=== PATIENT | female | born 1940 | race Caucasian/White ===

== ENCOUNTER 2021-11-20 20:45 | Emergency (ER) | payer OTHER ==
[~2021-11-20] VITALS: Ht 162.6 cm; Wt 73.0 kg
[2021-11-20 20:50] VITALS: BP 134/62
--- NOTE | 2021-11-20 20:50 | NUR ---
[facility] TO BED #9
--- NOTE | 2021-11-20 21:00 | NUR ---
ASSUME CARE OF PT BY JOELLEN RN, PT BIBA FOR WITNESSED SYNCOPAL EPISODE, PT C/O DIARRHEA X 1 MONTH, HAD A COLONOSCOPY AND DX WITH COLON CANCER. PT C/O RECTAL PAIN, EMS STATES DX ORTHOSTATIC HYPOTENSION YESTERDAY. PT PLACED ON CLOTH TESTER QUALITY, EKG COMPLETE AND GIVEN TO DR MENDOZA.
[2021-11-20] MEDS ORDERED: NACL 0.9% 500 ML IV ONE (21:05)
[2021-11-20 21:07] LABS: BASOPHILS # (AUTO) 0.1 K/uL (0.00-0.22); BASOPHILS % (AUTO) 0.5 % (0.0-2.0); EOSINOPHILS # (AUTO) 0.2 K/uL (0-0.4); EOSINOPHILS % (AUTO) 1.7 % (0.0-4.0); HEMATOCRIT 33.1 % (36-48); HEMOGLOBIN 10.8 g/dL (12.0-16.0); LYMPHOCYTES # (AUTO) 1.4 K/uL (2.5-16.5); LYMPHOCYTES % (AUTO) 9.6 % (20.5-51.1); MEAN CORPUSCULAR HEMOGLOBIN 27 pg (27-31); MEAN CORPUSCULAR HGB CONC 33 g/dL (33-37); MEAN CORPUSCULAR VOLUME 83.5 fL (80-94); MONOCYTES # (AUTO) 0.9 K/uL (0.8-1.0); NEUTROPHILS # (AUTO) 11.7 K/uL (1.8-7.7); NEUTROPHILS % (AUTO) 82.2 % (42.2-75.2); PLATELET COUNT (AUTO) 352 K/uL (140-450); RED BLOOD CELL COUNT(AUTO) 3.96 MIL/uL (4.20-5.40); RED CELL DISTRIBUTION WIDTH 15.6 % (11.6-13.7); WHITE BLOOD COUNT (AUTO) 14.2 K/uL (4.8-10.8)
--- NOTE | 2021-11-20 21:22 | NUR ---
PT RETURN FROM RADIOLOGY
[2021-11-20 21:29] LABS: ANION GAP 16.5 (8-16); ASPARTATE AMINOTRANSFERASE 17 U/L (15-37); CARBON DIOXIDE 22.9 mmol/L (21-32); CHLORIDE 101 mmol/L (98-107); CREATININE 1.7 mg/dL (0.6-1.3); GLUCOSE 189 mg/dL (74-106); POTASSIUM 3.4 mmol/L (3.5-5.1); SODIUM SERUM 137 mmol/L (136-145); TOTAL BILIRUBIN 0.6 mg/dL (0.0-1.0); UREA NITROGEN, BLOOD 22 mg/dL (7-18)
--- NOTE | 2021-11-20 22:30 | NUR ---
JAMIRIGHT COMPLETE URINE SENT TO LAB
[2021-11-20 22:41] LABS: APPEARANCE,URINE CLOUDY (CLEAR); BILIRUBIN,URINE NEGATIVE (NEGATIVE); BLOOD, URINE NEGATIVE (NEGATIVE); COLOR,URINE YELLOW (YELLOW); LEUKOCYTE ESTERASE ,URINE 1+ (NEGATIVE); NITRITE, URINE POSITIVE (NEGATIVE); UGLUCOSE NEGATIVE (NEGATIVE)
--- NOTE | 2021-11-20 22:43 | NUR ---
FAMILY AT BEDSIDE
[2021-11-20 22:45] LABS: RBC,URINE 0-5 /HPF (0-5)
[2021-11-20] MEDS ORDERED: cefTRIAXone 1,000 MG in DEXT 5% MINI-BAG PLUS 50 ML IV ONE (23:15)
--- NOTE | 2021-11-20 23:30 | NUR ---
RASHAD SENT TO LAB.
[2021-11-20] MEDS ORDERED: cefTRIAXone 500 MG VIAL ONE ×2 (23:41)
--- NOTE | 2021-11-21 02:00 | NUR ---
PT RESTING IN BED, DENIES ANY DISCOMFORT, VSS. NO DISTRESS OBSERVED.
--- NOTE | 2021-11-21 03:03 | NUR ---
[facility] AT BEDSIDE
--- NOTE | 2021-11-21 03:15 | NUR ---
REPORT GIVEN TO [facility], QUESTIONS ASKED AND ANSWERED. PT PLACED ON GURNEY, NO DISTRES OBSERVED.
--- NOTE | 2021-11-21 03:20 | NUR ---
Patient to be transferred to [facility]. Is being transferred due to INSURANCE REQUEST. Receiving facility has accepting physician and available space. ER physician has signed transfer form. Patient or responsible green party has agreed to transfer and signed form. Patient belongings inventoried and will be sent with patient. Copy of nursing notes, lab reports, EKG, Physicians Orders and X-rays to be sent with patient. Report called to MARIANN MENDOZA at receiving facility. [facility] ambulance service has been called for transfer. ETA is 40 MINS.
[2021-11-21 03:23] VITALS: BP 161/77
--- NOTE | 2021-11-23 17:01 | NUR ---
LATE ENTRY. RECEIVED POSITIVE URINE CULTURE RESULT. PT WAS TRANSFERRED TO [facility]. SPOKE WITH SNEHAL DURÁN. RESULTS FAXED. RECEIVED CONFIRMATION REPORT. FORM PLACED IN BINDER
== END 2021-11-21 03:20 | disposition short-term general hospital (02) ==
LOC: MED 20:45
DX: R55 Syncope and collapse (principal); Z20.822 Contact with and (suspected) exposure to COVID-19; N39.0 Urinary tract infection, site not specified; Z90.49 Acquired absence of other specified parts of digestive tract; Z90.710 Acquired absence of both cervix and uterus; Z98.890 Other specified postprocedural states
CPT/HCPCS: 36415; 70450; 71045; 80053; 81001; 83605; 84484; 85025; 87040; 87086; 87426; 93005; 96361; 96365; 99285; J0696; J7030; J7060; Q0092